=== PATIENT | female | born 1995 | race Caucasian/White ===

== ENCOUNTER → 2022-03-12 13:19 | Outpatient (BNVA) | payer OTHER, SELFPAY | PROVIDERS: PCP Internal Medicine; Visit Provider Physician Assistant Surgical | DX: Z13.89 Encounter for screening for other disorder (principal) ==

== ENCOUNTER → 2022-03-23 08:00 | Outpatient (BNVA) | payer OTHER, SELFPAY | PROVIDERS: PCP Internal Medicine; Visit Provider Surgery | DX: E66.01 Morbid (severe) obesity due to excess calories (principal); Z68.43 Body mass index [BMI] 50.0-59.9, adult | CPT/HCPCS: 99202 ==

== ENCOUNTER 2022-04-06 10:18 | Outpatient (REF) | payer OTHER, SELFPAY ==
--- NOTE | ~2022-04-06 | XR_ITS ---
EXAMINATION: XR CHEST CLINICAL INFORMATION: Morbid/severe obesity due to excess calories. COMPARISON: None. TECHNIQUE: 2 views of the chest were obtained. FINDINGS: No significant abnormality is noted involving the heart, lungs, mediastinum, bony thorax or soft tissues. XR/XR chest 2V IMPRESSION: Unremarkable chest examination.
[2022-04-06 10:51] LABS: MANUAL DIFF FLAG NO
--- NOTE | 2022-04-06 10:53 | ECG_ITS ---
Test Reason : E66.6 MOR OBS Blood Pressure : / mmHG Vent. Rate : 070 BPM Atrial Rate : 070 BPM P-R Int : 134 ms QRS Dur : 092 ms QT Int : 382 ms P-R-T Axes : 024 051 021 degrees QTc Int : 412 ms Normal sinus rhythm with sinus arrhythmia Normal ECG No previous ECGs available Referred By: Luis Marie Electronically Signed By:LUCIAN NO MD
[2022-04-06 11:34] LABS: Basophils Absolute Auto 0.1 X10*3/uL (0.0-0.2); Basophils Percent Auto 0.9 % (0-2); Eosinophils Absolute Auto 0.1 X10*3/uL (0.0-0.4); Eosinophils Percent Auto 1.8 % (0-4); Hematocrit 43.7 % (37.0-47.0); Hemoglobin 15.3 g/dl (12.0-16.0); Imm Gran Abs Auto 0.01 X10*3/uL (0.00-0.03); Imm Gran Pct Auto 0.1 % (0.0-0.4); Lymphocytes Percent Auto 29.5 % (20-40); Mean Corpuscular Volume 88.6 fL (80.0-98.0); Mean Platelet Volume 11.6 fL (9.4-12.3); Monocytes Absolute Auto 0.5 X10*3/uL (0.1-1.2); Neutrophils Percent Auto 60.7 % (45-73); Platelet Count 291 X10*3/uL (160-400); Red Blood Count 4.93 X10*6/uL (4.20-5.50); Red Cell Distribution Width 13.1 % (11.0-16.0); White Blood Count 6.7 X10*3/uL (4.8-10.8)
[2022-04-06 11:41] LABS: Estimated Average Glucose 88 mg/dL; Hemoglobin A1c % 4.7 %
[2022-04-06 11:56] LABS: Alanine Aminotransferase 28 U/L (0-31); Albumin Level 4.3 g/dL (3.5-5.0); Alkaline Phosphatase 83 U/L (39-117); Anion Gap 13 (12-20); Aspartate Amino Transferase 24 U/L (5-31); Bilirubin Total 0.7 mg/dL (0.0-1.0); Blood Urea Nitrogen 16 mg/dL (9-16); C Reactive Protein 0.81 mg/dL (< or = 0.50); Calcium 9.7 mg/dL (8.4-10.2); Carbon Dioxide 23 mmol/L (22-29); Chloride 109 mmol/L (96-108); Cholesterol 166 mg/dL; Estimated Glomerular Filt Rate > 60; Glucose Random 90 mg/dL (60-115); HDL Cholesterol 31 mg/dL; Iron 119 mcg/dL (30-160); LDL Cholesterol Calculated 122 mg/dl; Percent Iron Saturation 35 % (15-50); Potassium 4.9 mmol/L (3.3-5.1); Sodium 140 mmol/L (135-145); Total Iron Binding Capacity 336 mcg/dL (228-428); Total Protein 7.2 g/dL (6.5-8.0); Triglycerides 69 mg/dL; Unsaturated Iron Binding 217 ug/dL
[2022-04-06 12:21] LABS: Ferritin 79 ng/mL (10-122); TSH reflex Free T4 0.35 uIU/mL (0.32-4.0); Vitamin D 25-OH Total 21.9 ng/mL (>30)
[2022-04-06 12:48] LABS: Vitamin B12 413 pg/mL (200-900)
[2022-04-06 12:51] LABS: Insulin 11 uU/mL (2-29)
[2022-04-07 12:42] LABS: Calcium (PTHI) 9.5 mg/dL (8.6-10.2); PTHI 77 pg/mL (16-77)
[2022-04-07 12:56] LABS: H Pylori Breath Test Negative (Negative)
[2022-04-09 00:02] LABS: Zinc 80 mcg/dL (60-130)
[2022-04-09 22:46] LABS: Vitamin A 43 mcg/dL (38-98)
[2022-04-11 12:16] LABS: Vitamin B1 8 nmol/L (8-30)
== END 2022-04-06 10:19 | disposition home or self-care (01) ==
LOC: HO.LAB 10:18
PROVIDERS: PCP Student in an Organized Health Care Education/Training Program; Visit Provider Surgery
DX: Z01.818 Encounter for other preprocedural examination (principal); E66.01 Morbid (severe) obesity due to excess calories
CPT/HCPCS: 36415; 71046; 80053; 80061; 82306; 82607; 82728; 82746; 83013; 83036; 83525; 83540; 83970; 84425; 84443; 84590; 84630; 85025; 86140; 93005; 99211

== ENCOUNTER → 2022-04-16 08:11 | Outpatient (BNVA) | payer OTHER, SELFPAY | PROVIDERS: PCP Internal Medicine; Visit Provider Dietitian, Registered | DX: E66.01 Morbid (severe) obesity due to excess calories (principal); Z68.42 Body mass index [BMI] 45.0-49.9, adult | CPT/HCPCS: 97802 ==

== ENCOUNTER → 2022-04-20 11:00 | Outpatient (BNVA) | payer OTHER, SELFPAY | PROVIDERS: PCP Student in an Organized Health Care Education/Training Program; Visit Provider Counselor Mental Health | DX: F43.20 Adjustment disorder, unspecified (principal); E66.01 Morbid (severe) obesity due to excess calories | CPT/HCPCS: 90791 ==

== ENCOUNTER 2022-05-11 08:55 | Outpatient (REF) | payer OTHER, SELFPAY ==
--- NOTE | ~2022-05-11 | FL_ITS ---
PROCEDURE: XR FLUOROSCOPY UPPER GI WITH AIR CLINICAL INFORMATION: Morbid/severe obesity due to excess calories. COMPARISON: None. TECHNIQUE: Routine upper GI contrast study was performed in upright and lying position. FINDINGS: Following oral administration of thick barium and effervescent granules in upright view there is normal propagation of bolus from the oral cavity through the pharynx, esophagus into stomach. No obstruction or intraluminal filling defect seen. On placing patient supine and prone lying the course, caliber and the peristalsis of the stomach and the duodenum is normal. The mucosal pattern of the stomach and the duodenum is normal. FLUOROSCOPY TIME: 2.3 minutes. DOSE AREA PRODUCT: 37.927 uGy-m2 (microgray-meter squared). FL/FL upper GI w air IMPRESSION: Unremarkable upper GI exam.
--- NOTE | ~2022-05-11 | US_ITS ---
EXAMINATION: US COMPLETE ABDOMEN WITH LIVER ELASTOGRAPHY CLINICAL INFORMATION: Obesity COMPARISON: None. TECHNIQUE: Real-time imaging of the abdominal viscera. Noninvasive ultrasound liver fibrosis assessment is performed using Bird ElastPQ point quantification shear wave elastography (2D-SWE) with a C5-2 MHz transducer. Multiple elastography samples are obtained. FINDINGS: PANCREAS: The visualized pancreatic head and body are normal in appearance. The remainder of the pancreas is obscured from visualization by the overlying bowel gas. ABDOMINAL AORTA: The proximal, middle, and distal aortic segments are normal in caliber. INFERIOR VENA CAVA: Visualized portions are normal. LIVER: Liver echotexture is slightly increased. The liver demonstrates normal size, and contour. No focal lesion or intrahepatic biliary duct dilatation. The right lobe measures 17 cm in length. The left lobe measures 9.3 cm in length. Portal flow is normal/hepatopedal Shear wave liver elastography median stiffness is 1.8 m/s (reference: normal median stiffness is 1.3 m/s or less). IQR/median stiffness to assess sampling precision is 0.22 (reference: good quality data set is IQR/median stiffness of 0.15 or less). GALLBLADDER: Normal. The gallbladder is physiologically distended without evidence of stones, sludge, polyps, wall thickening or pericholecystic fluid. COMMON BILE DUCT: Normal in caliber measuring 0.3 cm in diameter. RIGHT KIDNEY: Normal. No hydronephrosis. No renal calculi or focal parenchymal lesions. The kidney measures 11 cm in maximum dimension. LEFT KIDNEY: Normal. No hydronephrosis. No renal calculi or focal parenchymal lesions. The kidney measures 11.3 cm in maximum dimension. SPLEEN: Normal. The spleen measures 10.2 cm in maximum dimension. FREE FLUID: None. US/US abdomen comp w elastography IMPRESSION: 1. Impression: Slightly echogenic liver. Limited visualization of the tail the pancreas. 2. Liver elastography: Slightly limited due to sampling error. Slightly elevated liver stiffness. REFERENCE: Society of Radiologists in Ultrasound Liver Stiffness Thresholds (2020): LIVER STIFFNESS THRESHOLDS: *Liver Stiffness equal or less than 1.3 m/s: High probability of being normal. *Liver Stiffness less than 1.7 m/s: In the absence of other known clinical signs, rules out compensated advanced chronic liver disease. *Liver Stiffness 1.7-2.1 m/s: Suggestive of compensated advanced chronic liver disease but need further test for confirmation. *Liver Stiffness over 2.1 m/s: Rules in compensated advanced chronic liver disease. *Liver Stiffness over 2.4 m/s: Suggestive of clinically significant portal hypertension. QUALITY OF DATA SET: *IQR/Median value equal or less than 0.15 implies a quality data set. *IQR/Median value over 0.15 implies a poor quality data set. SIGNIFICANT CHANGE FROM PRIOR EXAM: Significant change if liver stiffness measurement is 10% or greater from prior exam. OTHER CONSIDERATIONS: The stage of liver fibrosis may be overestimated in the setting of acute hepatitis, liver inflammation, elevated liver function tests, hepatic vascular congestion, obstructive cholestasis, non-fasting state, and infiltrative diseases such as amyloidosis and lymphoma. In some patients with NAFLD, the liver stiffness thresholds for compensated advanced chronic liver disease may be lower. In causes other than viral hepatitis and NAFLD, liver stiffness thresholds are not well established.
== END 2022-05-11 08:56 | disposition home or self-care (01) ==
LOC: HO.US 08:55
PROVIDERS: PCP Student in an Organized Health Care Education/Training Program; Visit Provider Surgery
DX: E66.01 Morbid (severe) obesity due to excess calories (principal)
CPT/HCPCS: 74246; 76705; 76981

== ENCOUNTER 2022-05-19 07:55 | Inpatient (IN) | payer OTHER, SELFPAY ==
[2022-05-14 10:33] VITALS: BMI 44.6
[2022-05-15 09:35] LABS: MANUAL DIFF FLAG NO
[2022-05-15 10:31] LABS: Basophils Absolute Auto 0.1 X10*3/uL (0.0-0.2); Basophils Percent Auto 0.9 % (0-2); Eosinophils Absolute Auto 0.1 X10*3/uL (0.0-0.4); Eosinophils Percent Auto 1.2 % (0-4); Hematocrit 43.6 % (37.0-47.0); Hemoglobin 15.3 g/dl (12.0-16.0); Imm Gran Abs Auto 0.02 X10*3/uL (0.00-0.03); Imm Gran Pct Auto 0.3 % (0.0-0.4); Lymphocytes Absolute Auto 1.8 X10*3/uL (1.2-4.9); Mean Corpuscular HGB Conc 35.1 g/dl (31.0-35.0); Mean Corpuscular Hemoglobin 31.2 pg (27.0-33.0); Mean Platelet Volume 12.7 fL (9.4-12.3); Monocytes Absolute Auto 0.5 X10*3/uL (0.1-1.2); Monocytes Percent Auto 7.2 % (2-11); Neutrophils Absolute Auto 4.2 x10*3/uL (2.0-8.3); Neutrophils Percent Auto 63.4 % (45-73); Platelet Count 253 X10*3/uL (160-400); Red Cell Distribution Width 13.8 % (11.0-16.0); White Blood Count 6.7 X10*3/uL (4.8-10.8)
[2022-05-15 10:36] LABS: Estimated Average Glucose 80 mg/dL; Hemoglobin A1c % 4.4 %
[2022-05-15 10:38] LABS: INTERNATIONAL NORM RATIO 1.2 (0.9-1.1); Prothrombin Time 14.1 SEC (9.9-13.0)
[2022-05-15 11:05] LABS: Alanine Aminotransferase 28 U/L (0-31); Albumin Level 4.5 g/dL (3.5-5.0); Alkaline Phosphatase 85 U/L (39-117); Anion Gap 17 (12-20); Aspartate Amino Transferase 23 U/L (5-31); Blood Urea Nitrogen 13 mg/dL (9-16); C Reactive Protein 0.92 mg/dL (< or = 0.50); Calcium 9.7 mg/dL (8.4-10.2); Carbon Dioxide 19 mmol/L (22-29); Chloride 108 mmol/L (96-108); Cholesterol 154 mg/dL; Creatinine Clr Calc Pharmacy 123.7; Estimated Glomerular Filt Rate > 60; Glucose Random 76 mg/dL (60-115); HDL Cholesterol 28 mg/dL; LDL Cholesterol Calculated 112 mg/dl; Potassium 4.5 mmol/L (3.3-5.1); Sodium 139 mmol/L (135-145); Total Protein 7.2 g/dL (6.5-8.0); Triglycerides 73 mg/dL
[2022-05-15 11:26] LABS: Insulin 9 uU/mL (2-29); TSH reflex Free T4 0.21 uIU/mL (0.32-4.0)
[2022-05-15 12:00] LABS: Free T4 (Free Thyroxine) 1.08 ng/dL (0.71-1.85)
--- NOTE | 2022-05-16 09:48 | MHC.SHP ---
Pre-Procedural Eval Section A Date of Service: 05/16/22 The patient is an INPATIENT: Yes The History & Physical has been completed within 30 days and I have reviewed it.: Yes Section B Chief Complaint: obesity Relevant Family History (Specify if Yes): No Relevant Social History: None Present Medications: None Medical History: No relevant PMH History of Previous Operations: No relevant previous surgery Allergies: Allergies Allergy/AdvReac Type Severity Reaction Status Date / Time No Known Allergies Allergy Verified 05/15/22 09:56 Review of Systems Sugical H&P ROS: Negative: Constitution, Cardiovascular, Respiratory, Neurological, Psychiatric, Hem-Onc, Allergic/Immunologic, Gastrointestinal, Genitourinary, Musculoskeletal, Integumentary, Endocrine and Eyes/Ears/Nose/Throat Exam Surgical H&P Exam: Normal: HEENT, Normal: Heart, Normal: Lungs, Normal: Extremities, Normal: Abdomen, Normal: Skin and Normal: Neurological Plan Diagnosis/Plan: Unchanged I have reviewed the history and physical and performed a pertinent physical examination on my patient. No changes have occurred unless specified.
--- NOTE | 2022-05-18 10:09 | P.CONAN_ITS ---
Documented by User: Tiffanie Carr NP 05/18/22 10:10 HPI - Anesthesia Eval Consult details Narrative: 26yo F for Gastrectomy Sleeve, EGD,Possible diaphragmatic hernia,Possible ventral hernia,Possible open PMFSH Active Problems Active Problems: All Active Problems (Updated 05/14/22 @ 10:33 by Sydnie Guerra RN) Morbid obesity (Acute) Vitamin D deficiency (Acute) Vitamin B12 deficiency (Acute) Adjustment disorder (Acute) Past Medical History Medical History (Updated 05/19/22 @ 11:14 by Luis Marie MD) History of epidural anesthesia Family History Family History (Updated 03/12/22 @ 13:54 by Karon Tobin) Brother Stomach acid Surgical History Surgical History (Updated 05/19/22 @ 13:26 by Shayla Cormier PA-C) Hx of wisdom tooth extraction Social History Social History (Updated 03/12/22 @ 13:55 by Karon Tobin) Are you a primary career development counselor to a significant other at home: Yes (children) Do you presently have visiting nurse or other home services: No Alcohol intake: current Alcohol intake frequency: does not drink Patient Tobacco Use Status: Never used Tobacco Use of substances other than those prescribed or required for medical reasons: No Have you been hit, kicked, punched, or otherwise hurt by someone within the past year? If so, by whom?: No Are you DNR?: No Advance Directives: No Advance Directives Information Provided: Yes Advance Directives on File: No Recently lost weight without trying: No Patient : No FDLMP: 04/13/2022 : No Poor oral hygiene: No Meds Allergies Allergy/AdvReac Type Severity Reaction Status Date / Time No Known Allergies Allergy Verified 05/15/22 09:56 Home Medications Medication Instructions Recorded Confirmed Last Taken Type etonogestrel 68 mg subdermal subdermal 03/12/22 05/15/22 Unknown History implant (Nexplanon) Exam Exam Date and Time: May 18, 2022 1009 Height,Weight and Vital Signs: Height 5 ft 4 in Weight 117.843 kg Pertinent Lab Results Pertinent Lab Results: Laboratory Tests 05/15/22 05/15/22 05/15/22 09:30 09:33 09:33 WBC 6.7 RBC 4.90 Hgb 15.3 Hct 43.6 MCV 89.0 MCH 31.2 MCHC 35.1 H RDW 13.8 Plt Count 253 MPV 12.7 H Immature Gran % (Auto) 0.3 Neut % (Auto) 63.4 Lymph % (Auto) 27.0 Heard % (Auto) 7.2 Eos % (Auto) 1.2 Baso % (Auto) 0.9 Lymph # (Auto) 1.8 Heard # (Auto) 0.5 Eos # (Auto) 0.1 Baso # (Auto) 0.1 Abs Immat Gran (auto) 0.02 Absolute Neuts (auto) 4.2 Absolute Nucleated RBC 0.000 Nucleated RBC % (auto) 0.0 PT 14.1 H INR 1.2 H APTT 48.0 H Sodium Potassium Chloride Carbon Dioxide Anion Gap BUN Creatinine Estim Creat Clear Calc Estimated GFR Random Glucose Estimat Average Glucose Hemoglobin A1c % Insulin Level Calcium Total Bilirubin AST ALT Alkaline Phosphatase C-Reactive Protein Total Protein Albumin Triglycerides Cholesterol LDL Cholesterol, Calc HDL Cholesterol TSH Free T4 Blood Type O Positive Antibody Screen NEGATIVE 05/15/22 05/15/22 09:33 09:33 WBC RBC Hgb Hct MCV MCH MCHC RDW Plt Count MPV Immature Gran % (Auto) Neut % (Auto) Lymph % (Auto) Heard % (Auto) Eos % (Auto) Baso % (Auto) Lymph # (Auto) Heard # (Auto) Eos # (Auto) Baso # (Auto) Abs Immat Gran (auto) Absolute Neuts (auto) Absolute Nucleated RBC Nucleated RBC % (auto) PT INR APTT Sodium 139 Potassium 4.5 Chloride 108 Carbon Dioxide 19 L Anion Gap 17 BUN 13 Creatinine 0.87 Estim Creat Clear Calc 123.7 Estimated GFR > 60 Random Glucose 76 Estimat Average Glucose 80 Hemoglobin A1c % 4.4 Insulin Level 9 Calcium 9.7 Total Bilirubin 1.0 AST 23 ALT 28 Alkaline Phosphatase 85 C-Reactive Protein 0.92 H Total Protein 7.2 Albumin 4.5 Triglycerides 73 Cholesterol 154 LDL Cholesterol, Calc 112 HDL Cholesterol 28 TSH 0.21 L Free T4 1.08 Blood Type Antibody Screen Narrative Narrative: EKG 03/2022 Vent. Rate : 070 BPM ? ? Atrial Rate : 070 BPM ?? P-R Int : 134 ms? QRS Dur : 092 ms ? ? QT Int : 382 ms ? ? ? P-R-T Axes : 024 051 021 degrees ?? QTc Int : 412 ms ? Normal sinus rhythm with sinus arrhythmia Normal ECG No previous ECGs available Assessment and Plan Assessment Anesthesia Assessment: Chart Reviewed Documented by User: Óscar Deleon MD 05/19/22 14:12 [facility] Past Medical History Medical History (Updated 05/19/22 @ 11:14 by Luis Marie MD) History of epidural anesthesia Family History Family History (Updated 03/12/22 @ 13:54 by Karon Tobin) Brother Stomach acid Family history of problems with anesthesia: No Surgical History Surgical History (Updated 05/19/22 @ 13:26 by Shayla Cormier PA-C) Hx of wisdom tooth extraction History of Problems with Anesthesia: No Social History Social History (Updated 03/12/22 @ 13:55 by Karon Tobin) Are you a primary career development counselor to a significant other at home: Yes (children) Do you presently have visiting nurse or other home services: No Alcohol intake: current Alcohol intake frequency: does not drink Patient Tobacco Use Status: Never used Tobacco Use of substances other than those prescribed or required for medical reasons: No Have you been hit, kicked, punched, or otherwise hurt by someone within the past year? If so, by whom?: No Are you DNR?: No Advance Directives: No Advance Directives Information Provided: Yes Advance Directives on File: No Recently lost weight without trying: No Patient : No FDLMP: 04/13/2022 : No Poor oral hygiene: No Meds Allergies Allergy/AdvReac Type Severity Reaction Status Date / Time No Known Allergies Allergy Verified 05/15/22 09:56 Home Medications Medication Instructions Recorded Confirmed Last Taken Type etonogestrel 68 mg subdermal subdermal 03/12/22 05/15/22 Unknown History implant (Nexplanon) Exam Airway Mallampati Class: III TM Dist: >3cm Neck ROM: Full Loose/Missing/Broken Teeth: Yes Heart: S!,S2 Lungs: b/l breath sounds Assessment and Plan Assessment Anesthesia Assessment: Anesthesia Plan Discussed Final Anesthetic Review Family History of Problems with Anesthesia: No History of Problems with Anesthesia: No NPO: Yes ASA Class: III Final Preanesthetic Review: Meds/Allgs Chart Reviewed, Consent Obtained/Reviewed and Anes Risks/Benef Reviewed Patient Risk: Intermediate Procedure Risk: Intermediate Anesthetic Plan Anesthetic Plan: GA Disposition: Standard PACU
[2022-05-18 10:12] LABS: COVID-19 Test Negative (Negative); IDNOW Serial# 16C4AD1C
[2022-05-19] VITALS (13 sets, daily range): BP systolic 108–135; BP diastolic 55–82; PULSE 87–110; RESP 16–18; TEMP 36.1–37.3; O2SAT 95–100
[2022-05-19 08:30] LABS: UPreg QC Valid YES
[2022-05-19 08:31] LABS: Urine Pregnancy NEGATIVE (NEGATIVE)
[2022-05-19] MEDS: Lactated Ringers 1,000 ML 100 ML IVCONT ×2 (08:45→16:54)
[2022-05-19] MEDS: Lactated Ringers 1,000 ML 999 ML IV (08:46)
--- NOTE | 2022-05-19 09:52 | PHA.MEDREC ---
Pharmacy Consult ? Medication Reconciliation Pharmacy has reviewed the medication reconciliation completed by nursing.
--- NOTE | 2022-05-19 11:13 | PM.PNGS ---
Subjective Subjective Date of Service: 05/20/22 Interval history: Feels well. Mild incisional pain. She is tolerating phase 1 bariatric diet Physical Exam Vital Signs: Vital Signs: Last Vital Signs Temp 97.5 F 05/19/22 08:24 Pulse 102 H 05/19/22 08:24 Resp 17 05/19/22 08:24 BP 135/82 05/19/22 08:24 Pulse Ox 98 05/19/22 08:24 O2 Del Method 05/19/22 08:24 BMI result Body Mass Index 44.6 GI: Inspection: Yes normal to inspection, Yes incision (clean, dry and intact) and Yes obesity Extrem: Right lower extremity: normal to inspection (no calf tenderness) Left lower extremity: normal to inspection (no calf tenderness) Objective Data Active Medications Lactated Ringer's (Lr) 1,000 mls @ 100 mls/hr IVCONT .Q10H [place] Last Admin: 05/19/22 08:45 Dose: 100 mls/hr Documented By: GONSALO Labs CBC & Chem 7: 05/20/22 05:40 05/20/22 05:40 Labs: Laboratory Results - last 24 hr 05/19/22 08:15 Urine Test NEGATIVE Procedures Date of Service Date of Service: 05/20/22 Progress Note: A&P Assessment and plan (1) Morbid obesity: Status: Acute Assessment and Plan: s/p laparoscopic sleeve gastrectomy and gastropexy Doing well Will check am labs and if OK the patient will be discharged home (2) Liver fibrosis: Status: Acute (3) S/P laparoscopic sleeve gastrectomy: Status: Acute Time Spent With Patient Time: Total time spent is greater than 50% in coordination of care (as documented) at patient's floor/unit and/or counseling patient: Quality Stroke Does the patient have a stroke diagnosis?: No VTE Prior VTE?: No VTE Risk Level:: Surgical - moderate VTE Device Contraindication: N/A - Device Ordered VTE Drug Contraindication: Treatment Not Indicated
--- NOTE | 2022-05-19 11:15 | PM.OP ---
Brief Operative Note Date of Service: 05/19/22 Pre-op diagnosis: Morbid obesity with comorbidities (see below0 Post-op diagnosis: same Procedure: INITIAL PATIENT BMI ON PRESENTATION AT OUR OFFICE: 50.1 kg/m2 LAST BMI BEFORE SURGERY: 44.1 kg/m2 COMORBIDITIES: liver fibrosis ?The patient presented to the Weight Management Program with significant obesity that was negatively impacting the patient's comorbidities as listed above.? The program is a phased program with a special focus on preoperative medical weight management to promote substantial weight loss and prepare the patients for the second phase of the program: bariatric surgery. The patient participated in an intensive weekly lifestyle ?intervention and exercise program during which the patient ?has lost between the initial office visit and the last preoperative visit 35 lbs, or 12% of initial actual body weight. It was deemed appropriate for the patient to now have bariatric surgery. In light of the current Covid-19 pandemic and the well documented strong association of obesity and increased risk of worse outcomes if infected with Covid-19 (REFERENCES:https://pubmed.ncbi.nlm.nih.gov/95930717/,?https://pubmed.ncbi.nlm.nih.gov/64512745/), any delay in undergoing bariatric surgery may lead to the patient's worsening health condition and increased?risk of more severe Covid-19 disease if infected. In addition a recent?study from [facility] published in [employer] on 11/24/2021 ([email or web address]) found that, among patients with obesity, substantial weight loss achieved with surgery was associated with improved outcomes of COVID-19 infection. The findings suggest that obesity can be a modifiable risk factor for the severity of COVID-19 infection. In addition, the patient met the BMI-criteria for bariatric surgery based on the BMI on initial presentation. The patient should not be penalized for achieving such weight loss because ?it is not sustainable long-term without surgical intervention and it was achieved in preparation for bariatric surgery ?under my direction and based on my published research ([email or web address]).[email or web address] and?https://www.soard.org/article/[email or web address](78)80693-X/pdf) ?that a 10% preoperative weight loss improves long-term weight loss after surgery and reduces perioperative complications.? Insurance carriers such as [facility] have endorsed my recommendations ?and have included in their policies criteria to include a 10% preoperative weight loss requirement. PROCEDURE: Esophago-gastroscopy, laparoscopic repair of incarcerated diaphragmatic hernia, laparoscopic lysis of adhesions, laparoscopic sleeve gastrectomy and laparoscopic gastropexy INDICATIONS: This is a 26 year-old female who was electively scheduled for laparoscopic, possibly open sleeve gastrectomy. The risks and complications of the procedure were discussed with the patient in advance, particularly the possibility of ; pulmonary embolism; staple line leak; bleeding; GERD; cardiac, pulmonary, or renal complications; as well as long-term problems such as insufficient weight loss, vitamin deficiency, strictures, or ulcers. The patient understood all the risks, and was in agreement to proceed with surgery. DESCRIPTION OF PROCEDURE: After informed consent was obtained from the patient, the patient was given preoperative antibiotics, and was transferred to the operating room. After successful induction of general anesthesia, pneumatic compression devices were placed on both lower extremities. An upper endoscopy was performed next. The oropharynx and esophagus appeared to be within normal limits. There was no diaphragmatic hernia present consistent with the findings of the preoperative upper GI. The stomach was entered. Then after all fluid and air were suctioned and the stomach was fully decompressed, the scope was withdrawn and secured in the mid esophagus. The patient was then prepped and draped in the usual sterile manner, and abdominal access was established at the right upper quadrant with the Ata technique. A 12 mm blunt port was inserted, and the abdomen was insufflated with CO2 to a pressure of 15 mmHg. Under direct visualization, additional ports were placed, specifically two 5 mm Versi-step ports to the left upper quadrant, and a 5 mm Versi-Step port to the right upper quadrant. 1% lidocaine plain was used to infiltrate all port sites as well as all fascia defects. Using the EndoClose suture passer device, I placed a #1 Polysorb tie across the falciform ligament in order to retract it up against the abdominal wall and prevent injury of the ligament with our instruments during the procedure. Following that, the patient was placed in a steep reverse Trendelenburg position. An additional 5 mm port was placed to the right flank for the Mediflex retractor that was used to retract the left lobe of the liver. The gastro-esophageal fat pad was opened with the ultrasonic device (Thunderbeat, Olympus) and the anterior esophagus and hiatus were exposed. The angle of His was opened with the ultrasonic device the fundus of the stomach from any diaphragmatic and splenic attachments. I then opened the gastrocolic ligament between the transverse colon and the greater curvature of the stomach with the ultrasonic device to enter the lesser sac and facilitate the ligation of the short gastric vessels. I started at a mid-point along the greater curvature and using the Thunderbeat, all short gastric vessels were divided all the way to the angle of His until the left sushant was completely dissected at its entirety. I then divided the gastro-colic ligament distally to a distance of about 3-4 cm proximal to the pylorus. The stomach was then divided transversely with one Endo ROYA-45 purple, one ROYA-45 orange load and three ROYA-60 articulating orange loads using the AEON stapler and loads. Every effort was made that the gastric sleeve had a tubular shape and an even caliber throughout. Once the sleeve resection was completed, the staple line of the gastric sleeve was reinforced with Hemoclips. The resected stomach was retrieved without difficulty from the Ata port. A gastropexy was then performed in order to prevent postoperative GERD and partial gastric volvulus. Several interrupted 2.0 Surgidac sutures were placed between the sleeve's staple line and the previously divided greater omentum and gastro-colic ligament using the Endo-Stitch device. ?An upper endoscopy was performed. There was no narrowing at the GE junction. The scope was easily advanced all the way to the pylorus which was clearly visualized. There was no narrowing anywhere and the sleeve's caliber was even throughout. The sleeve's staple line was inspected and there was no evidence of ischemia, bleeding or dehiscence. At that point the gastroscope was withdrawn from the patient?s mouth while we were decompressing the bowel and the stomach from any remaining air. I looked into the lesser sac to see how the sleeve was situating and it was situating well. There was no bleeding from the staple line, spleen, or short gastric vessels. The Mediflex retractor was removed, and the undersurface of the liver was inspected and there was no bleeding. The patient was placed in supine position. I closed the fascial defect of the 12 mm port site with a figure of eight #1 Polysorb suture. Then 40cc of Rupivacaine plain with 10 mg of Dexamethasone were used to infiltrate the fascial closure as well as all skin incisions. A total of 7 ml of Zynrelef was applied in the Ata wound. At this point, the abdomen was deflated, all ports were removed under direct vision, and no bleeding was noted from any of the port sites. The skin incisions were irrigated with saline and were closed with 4-0 absorbable monofilament sutures. Steri-Strips and OpSites were used to cover all incisions. The patient was extubated and was transferred in stable condition to the recovery room for further care. I was present and performed all harman parts of the procedure. Ms. Cormier was the instruction assistant principal. There were no residents to assist with this case. Marcos Marie MD, PhD, FACS Surgeon: Luis Marie MD Anesthesia: GETA, local and other (TAP block & 7ml Zynrelef) Was an Supervisor Vacuum Metalizing used for this Procedure?: No Supervisor Vacuum Metalizing: Shayla Cormier Estimated blood loss (mL): 10 IV fluids (mL): 3,000 Urine output (mL): 0 (No Cameron to record) Pathology: other (Stomach) Condition: stable Disposition: PACU
--- NOTE | 2022-05-19 13:24 | PM.DS ---
DS: Providers Provider Date of Service: 05/20/22 Date of admission: 05/19/22 07:55 Primary care physician: Ángel Moss DO DS: Diagnosis Discharge Diagnosis (1) Morbid obesity: Status: Acute (2) Liver fibrosis: Status: Acute DS: Summary Hospital Course Hospital Course: ADMITTING DIAGNOSIS: morbid obesity DISCHARGE DIAGNOSIS: same, s/p laparoscopic sleeve gastrectomy PAST SURGICAL HISTORY: wisdom teeth removal PROCEDURE: upper endoscopy, laparoscopic sleeve gastrectomy DISCHARGE SUMMARY: History of Present Illness: The patient is a 26 year-old woman with a BMI of 50.1 kg/m2 and associated co-morbidities as described above. The patient had extensive work-up,lost 27.6lbs preoperatively and was electively scheduled for laparoscopic, possible open sleeve gastrectomy and gastropexy. Risks and complications of the surgery were discussed with the patient in advance, particularly the possibility of , pulmonary embolism, anastomotic leak, bleeding, bowel injury, GERD, cardiac, renal or pulmonary complications. The patient understood all the risks and was in agreement with the surgical plan. Hospital Course: The patient underwent an uneventful laparoscopic sleeve gastrectomy with gastropexy on the day of admission. Postoperatively, the patient was transferred to the surgical floor. The patient received IV Acetaminophen and IV dilaudid for pain control. Patient was started on bariatric phase 1 diet POD #0. On postoperative day one, the patient was feeling well without nausea, vomiting, fevers, or tachycardia. The patient had some mild incisional pain and the abdomen was soft. On the morning of postoperative day one, the patient was continued on 1 ounce of water or ice every half hour. During the day, the patient did fairly well, having some incisional pain, but able to ambulate adequately and to tolerate liquids well. Since the patient is doing well, we decided that the patient was ready to be discharged. The patient was given instructions to follow-up with me next week and to call my office for any fever over 101, persistent abdominal pain, nausea, vomiting, GERD, symptoms of DVT such as calf tenderness, or leg swelling, or pulmonary embolism such as chest pain or shortness of breath. The patient was also instructed to drink 40-60 ounces of liquids per day using the 1-ounce cups. The patient had been given prescriptions for Tylenol for pain, Zofran prn for nausea, and pantoprazole and carafate previously. The patient was encouraged to ambulate and use the incentive spirometer. The patient was allowed to shower, but no baths, and encouraged to stay active at home. All of these instructions were given to the patient personally. All questions were answered and the patient understood all instructions, the instructions were also given to the patient in print. Time Spent with Patient Time attestation: Total time spent providing and/or coordinating discharge services: Discharge coordination time: Less than 30 minutes Quality: Safe Use of Opioids Does Pt have an Active Cancer Diagnosis on the Problem List?: No Quality: Stroke Does the patient have a stroke diagnosis?: No Physical Exam Vital Signs: Vital Signs: Last Vital Signs Temp 97.5 F 05/19/22 08:24 Pulse 102 H 05/19/22 08:24 Resp 17 05/19/22 08:24 BP 135/82 05/19/22 08:24 Pulse Ox 98 05/19/22 08:24 O2 Del Method 05/19/22 08:24 BMI result Body Mass Index 44.6 DS: Data Data Completed and Pending Pending studies at discharge: Pending at discharge 05/19/22 13:12 Surgical [PTH] Routine Labs on day of discharge: Laboratory Results - last 24 hr 05/19/22 08:15 Urine Test NEGATIVE Discharge Plan Discharge Anticipated Discharge Date/Time: 05/20/22 10:00 Patient Disposition: Home, Self-Care Discharge Diagnosis: s/p sleeve gastrectomy Referrals: Ángel Moss DO [Primary Care Provider] - 1 Week Discharge Medications: Continued Nexplanon 68 mg implant subdermal pantoprazole 40 mg tablet,delayed release (DR/EC) 40 mg PO DAILY Qty: 30 2RF sucralfate 100 mg/mL suspension 10 ml PO BID Qty: 400 2RF ondansetron HCl 4 mg tablet 4 mg PO Q12H Qty: 20 0RF Discontinued cholecalciferol (vitamin D3) 125 mcg (5,000 unit) capsule 125 mcg PO DAILY Qty: 30 2RF mecobalamin (vitamin B12) 1,000 mcg tablet,disintegrating 1,000 mcg sublingual DAILY Qty: 30 2RF Rx Instructions: place tablet under tongue and allow to dissolve for at least30 secs before swallowing polyethylene glycol 3350 [Miralax] 17 gram powder in packet 17 g PO DAILY Qty: 14 0RF Rx Instructions: Mix each packet with 8oz of water and do 7 packets two days prior to surgery date and another 7 packets one day prior to surgery date Discharge Orders: Discharge Order (Routine); Ordered 05/20/22 Ordered By: Luis Marie Diet: other Activity on Discharge: No heavy lifting Stand Alone Forms: Patient Portal Discharge page Care Plan Goals: weight loss Health Concerns: morbid obesity Plan of Treatment: No tub baths, sex or returning to work until discussed at first post op appointment. No exercise, alcohol, tobacco or illegal drug use. Continue to use incentive spirometer hourly while awake. Walk in home for 5- 10 minutes every 2 hours during the first week. Continue phase 1 diet today and start phase 2 diet tomorrow morning. Follow all instructions in the bariatric handbook and call with any questions. 1. Please call your doctor or come back to the emergency room should any new symptoms arise. 2. You will receive a courtesy call from [facility] 24-48 hours after discharge. 3. Activity: abstain from alcohol, practice limited stair climbing, no bending, no driving, no exercise, no illicit substances, no lifting, no sex, no tub bath, no work. 4. Diet: continue as discussed with Dr. Marie. 5. Dressing Change/Wound Care: Do not change or remove surgical dressings unless they are wet or soiled. 6. Call your doctor if: - Your temperature exceeds 101.5 F - You experience excessive pain or swelling - You have an unexpected reaction to medication - You have excessive bleeding - You experience continued vomiting/nausea - Your incision begins to separate - Your incision shows signs of infection such as increased redness, swelling, excessive pain, heat, or drainage (light blood or clear fluid is normal) 7. General instructions: No lifting greater than 5 lbs for the next 4 weeks[address] driving within 24 hours of taking narcotic pain medications. If you do not move your bowels in the next 2 days, please take milk of magnesia over the counter. Please follow the post op diet and do not advance your diet until you are seen in the office in about 2 weeks. Please walk around your home every hour or two to prevent blood clots from forming in your legs. You do not need to wake from sleeping to walk. Please sleep in a bed or couch to prevent kinking at the hips and knees. Please take your incentive spirometer (your lung document photographer) home with you and use it for the next few days to prevent pneumonias. You may shower, no hot tubs, baths or swimming pools. Please call the office with any questions or concerns such as increasing abdominal pain, fever, chills, shortness of breath, chest pain, leg pain or swelling, or redness or drainage from your incisions. Do not hesitate to contact the office with any questions at . The patient's medical history has been reviewed and they are considered low risk for post op DVT and therefore DVT prophylaxis is not considered necessary. Travel after surgery was reviewed. The patient has not disclosed any travel plans during the first 30 days after surgery and they have been advised that within the first 30 days after surgery any bus, plane, train or car travel over 2 hours in duration is contraindicated due to the possibility of developing blood clots from immobility. Any travel, needs to include periods of ambulation of 10 minutes in duration every 2 hours. The patient was instructed to discuss any plans for travel during this period with their bariatric surgeon. Assessment: stable, post op sleeve gastrectomy
[2022-05-19 13:48] LABS: Hematocrit 39.3 % (37.0-47.0); Hemoglobin 13.5 g/dl (12.0-16.0)
[2022-05-19] MEDS: Metoclopramide HCl 10 MG/2 ML VIAL IVPUSH ×2 (13:54→21:19)
[2022-05-19] MEDS: Famotidine/PF 20 MG/2 ML VIAL IVPUSH ×2 (13:55→21:19)
[2022-05-19 14:10] LABS: Anion Gap 18 (12-20); Blood Urea Nitrogen 10 mg/dL (9-16); Calcium 8.7 mg/dL (8.4-10.2); Carbon Dioxide 16 mmol/L (22-29); Chloride 106 mmol/L (96-108); Creatinine Clr Calc Pharmacy 131.2; Estimated Glomerular Filt Rate > 60; Glucose Random 127 mg/dL (60-115); Potassium 3.4 mmol/L (3.3-5.1); Sodium 137 mmol/L (135-145)
[2022-05-19] MEDS: ondansetron HCL 4 MG/2 ML VIAL IVPUSH (16:53)
[2022-05-19] MEDS: 0.9 % Sodium Chloride Flush 3 ML SYRINGE IVFLUSH ×2 (16:54→21:19)
[2022-05-19] MEDS: ceFAZolin Sodium/Dextrose,Iso 2 GM/50 ML PIGGYBACK IV (16:54)
[2022-05-19] MEDS: HYDROmorphone HCl 0.5 MG/0.5 ML SYRINGE 0.25 MG IVPUSH (21:19)
[2022-05-19] MEDS: Potassium Phosphate/NS 15 MMOL/250 ML PLAST..BAG 62.5 MMOL IV (23:29)
[2022-05-20] VITALS: RESP 18
[2022-05-20] MEDS: ondansetron HCL 4 MG/2 ML VIAL IVPUSH ×2 (00:11→07:07)
[2022-05-20] MEDS: Lactated Ringers 1,000 ML 100 ML IVCONT ×2 (00:12→05:10)
[2022-05-20 04:00] VITALS: BP 108/61; PULSE 76; RESP 17; TEMP 36.7; O2SAT 95
[2022-05-20 06:43] LABS: Hematocrit 40.4 % (37.0-47.0); Hemoglobin 13.9 g/dl (12.0-16.0); Imm Gran Abs Auto 0.04 X10*3/uL (0.00-0.03); Imm Gran Pct Auto 0.4 % (0.0-0.4); Lymphocytes Absolute Auto 0.7 X10*3/uL (1.2-4.9); Lymphocytes Percent Auto 6.1 % (20-40); MANUAL DIFF FLAG SCAN; Mean Corpuscular HGB Conc 34.4 g/dl (31.0-35.0); Mean Corpuscular Hemoglobin 30.6 pg (27.0-33.0); Mean Platelet Volume 12.8 fL (9.4-12.3); Monocytes Absolute Auto 0.3 X10*3/uL (0.1-1.2); Monocytes Percent Auto 2.9 % (2-11); Neutrophils Percent Auto 90.6 % (45-73); Platelet Count 243 X10*3/uL (160-400); Red Blood Count 4.54 X10*6/uL (4.20-5.50); Red Cell Distribution Width 13.7 % (11.0-16.0); SCAN SMEAR FLAG 1
[2022-05-20] MEDS: Famotidine/PF 20 MG/2 ML VIAL IVPUSH (07:07)
[2022-05-20 07:15] LABS: Anion Gap 17 (12-20); Blood Urea Nitrogen 5 mg/dL (9-16); Calcium 9.2 mg/dL (8.4-10.2); Carbon Dioxide 13 mmol/L (22-29); Chloride 109 mmol/L (96-108); Creatinine Clr Calc Pharmacy 126.6; Estimated Glomerular Filt Rate > 60; Glucose Random 121 mg/dL (60-115); Potassium 4.7 mmol/L (3.3-5.1); Sodium 134 mmol/L (135-145)
[2022-05-20 07:18] LABS: SLIDE REVIEW VERIFIED
[2022-05-20 08:00] VITALS: BP 112/69; PULSE 78; RESP 18; TEMP 36.6; O2SAT 98
--- NOTE | 2022-05-20 09:19 | MHC.CM.PN ---
PT REPORTS: SHE LIVES WITH SPOUSE AND CHILDREN. PT DOES NOT RECEIVE ASSISTANCE AT HOME AND DOES NOT USE DME. PT'S PCP ON FILE- Faustino MARTINEZ FROM [facility]. PT IS COVID VACCINATED X3, MODERNA + BOOSTER. NO HCP ON FILE. PT EDUCATED ABOUT HCP. PT WILL SPEAK WITH HER PCP AND COMPLETE HCP IN OUTPATIENT SETTING. ONCE PT DISCHARGED, HER SPOUSE WILL PROVIDE TRANSPORTATION HOME. DISCHARGE PLAN: PT TO BE DISCHARGED HOME WITHOUT SERVICES.
--- NOTE | 2022-05-20 10:11 | HO.POSTANES ---
Post Anesthesia Evaluation Post Anesthesia Evaluation Vital Signs: Vital Signs Temp Pulse Resp BP Pulse Ox O2 Del Method 05/20/22 08:00 97.8 F 78 18 112/69 98 Room Air 05/20/22 04:00 98.1 F 76 17 108/61 95 Room Air 05/20/22 00:00 18 05/19/22 23:13 97.6 F 87 17 111/60 95 Room Air Anesthesia: General Endotracheal-GETA Mental Status: Awake Pain Control: Satisfactory Nausea/Vomiting: None Hydration: Adequate Anesthesia-Related Issues: No Anes. Related Issues
== END 2022-05-20 09:25 | disposition home or self-care (01) | DRG 403 ==
LOC: HO.EDOVER 09:38 → HO.SSSA 09:41 → HO.S3 14:28
PROVIDERS: Nurse Practitioner; Physician Assistant; Physician Assistant Surgical; Admitting Provider Surgery; PCP Student in an Organized Health Care Education/Training Program; Visit Provider Surgery
PROC: 0DB64Z3 Excision of Stomach, Percutaneous Endoscopic Approach, Vertical (ICD-10-PCS; CPT 43845; principal; 2022-05-19 10:10)
DX: E66.01 Morbid (severe) obesity due to excess calories (principal); K74.00 Hepatic fibrosis, unspecified; Z68.41 Body mass index [BMI] 40.0-44.9, adult; Z20.822 Contact with and (suspected) exposure to COVID-19; Z79.899 Other long term (current) drug therapy
CPT/HCPCS: 36415; 80048; 80053; 80061; 81025; 83036; 83525; 84439; 84443; 85014; 85018; 85025; 85610; 85730; 86140; 86850; 86900; 86901; 87635; 88307; 88342; A4649; J0131; J0690; J1100; J1170; J2250; J2405; J2550; J2765; J2795; J3010

== ENCOUNTER → 2022-06-11 11:00 | Outpatient (BNVA) | payer OTHER, SELFPAY | PROVIDERS: Visit Provider Counselor Mental Health | DX: Z98.84 Bariatric surgery status (principal) | CPT/HCPCS: 90882 ==

== ENCOUNTER 2022-12-09 11:45 | Outpatient (REF) | payer OTHER, SELFPAY ==
[2022-12-09 12:05] LABS: MANUAL DIFF FLAG NO
[2022-12-09 12:12] LABS: Basophils Percent Auto 0.6 % (0-2); Eosinophils Absolute Auto 0.1 X10*3/uL (0.0-0.4); Eosinophils Percent Auto 0.7 % (0-4); Hematocrit 38.2 % (37.0-47.0); Hemoglobin 13.2 g/dl (12.0-16.0); Imm Gran Abs Auto 0.02 X10*3/uL (0.00-0.03); Imm Gran Pct Auto 0.3 % (0.0-0.4); Lymphocytes Absolute Auto 2.4 X10*3/uL (1.2-4.9); Lymphocytes Percent Auto 35.3 % (20-40); Mean Corpuscular HGB Conc 34.6 g/dl (31.0-35.0); Mean Corpuscular Hemoglobin 32.8 pg (27.0-33.0); Mean Platelet Volume 11.3 fL (9.4-12.3); Monocytes Absolute Auto 0.4 X10*3/uL (0.1-1.2); Neutrophils Absolute Auto 3.8 x10*3/uL (2.0-8.3); Neutrophils Percent Auto 57.1 % (45-73); Platelet Count 253 X10*3/uL (160-400); Red Blood Count 4.02 X10*6/uL (4.20-5.50); Red Cell Distribution Width 12.9 % (11.0-16.0); White Blood Count 6.7 X10*3/uL (4.8-10.8)
[2022-12-09 13:24] LABS: Alanine Aminotransferase 12 U/L (0-31); Albumin Level 4.3 g/dL (3.5-5.0); Alkaline Phosphatase 80 U/L (39-117); Anion Gap 11 (12-20); Aspartate Amino Transferase 17 U/L (5-31); Blood Urea Nitrogen 19 mg/dL (9-16); Calcium 9.7 mg/dL (8.4-10.2); Carbon Dioxide 26 mmol/L (22-29); Chloride 108 mmol/L (96-108); Cholesterol 175 mg/dL; Estimated Glomerular Filt Rate > 60; Glucose Random 75 mg/dL (60-115); HDL Cholesterol 38 mg/dL; Iron 147 mcg/dL (30-160); LDL Cholesterol Calculated 128 mg/dl; Percent Iron Saturation 56 % (15-50); Potassium 4.2 mmol/L (3.3-5.1); Sodium 141 mmol/L (135-145); Total Iron Binding Capacity 261 mcg/dL (228-428); Total Protein 6.8 g/dL (6.5-8.0); Triglycerides 47 mg/dL; Unsaturated Iron Binding 114 ug/dL
[2022-12-09 13:31] LABS: Ferritin 120 ng/mL (10-122); Insulin 3 uU/mL (2-29); TSH reflex Free T4 0.75 uIU/mL (0.32-4.0); Vitamin D 25-OH Total 35.7 ng/mL (>30)
[2022-12-09 13:40] LABS: Vitamin B12 269 pg/mL (200-900)
[2022-12-09 13:57] LABS: Estimated Average Glucose 80 mg/dL; Hemoglobin A1c % 4.4 %
[2022-12-10 13:44] LABS: Calcium (PTHI) 9.8 mg/dL (8.6-10.2); PTHI 75 pg/mL (16-77)
[2022-12-13 20:39] LABS: Zinc 77 mcg/dL (60-130)
[2022-12-14 07:23] LABS: Vitamin B1 7 nmol/L (8-30)
[2022-12-15 14:34] LABS: Vitamin A 42 mcg/dL (38-98)
== END 2022-12-09 11:46 | disposition home or self-care (01) ==
LOC: HO.LAB 11:45
PROVIDERS: PCP Student in an Organized Health Care Education/Training Program; Visit Provider Physician Assistant Surgical
DX: Z98.84 Bariatric surgery status (principal)
CPT/HCPCS: 36415; 80053; 80061; 82306; 82607; 82728; 82746; 83036; 83525; 83540; 83970; 84425; 84443; 84590; 84630; 85025; 86140

== ENCOUNTER → 2022-12-11 10:42 | Outpatient (BNVA) | payer OTHER, SELFPAY | PROVIDERS: PCP Student in an Organized Health Care Education/Training Program; Visit Provider Physician Assistant Surgical | DX: E66.3 Overweight (principal); L98.7 Excessive and redundant skin and subcutaneous tissue; Z68.27 Body mass index [BMI] 27.0-27.9, adult; Z98.84 Bariatric surgery status | CPT/HCPCS: 99212 ==

== ENCOUNTER → 2023-02-09 12:49 | Outpatient (BNVA) | payer OTHER, SELFPAY | PROVIDERS: PCP Student in an Organized Health Care Education/Training Program; Visit Provider Physician Assistant Surgical | DX: L98.7 Excessive and redundant skin and subcutaneous tissue (principal); E66.3 Overweight; Z68.26 Body mass index [BMI] 26.0-26.9, adult; Z98.84 Bariatric surgery status | CPT/HCPCS: 99212 ==

== ENCOUNTER → 2023-05-20 13:13 | Outpatient (BNVA) | payer OTHER, SELFPAY | PROVIDERS: PCP Student in an Organized Health Care Education/Training Program; Visit Provider Physician Assistant Surgical | DX: E66.3 Overweight (principal); L98.7 Excessive and redundant skin and subcutaneous tissue; Z68.27 Body mass index [BMI] 27.0-27.9, adult | CPT/HCPCS: 99212 ==

== ENCOUNTER 2023-06-28 14:57 | Outpatient (AMB) | payer OTHER, SELFPAY ==
--- NOTE | 2023-06-28 14:23 | A.OFFVIS_ITS ---
Intake Intake Visit Reasons: VIDEO Pre Op Brachioplasty 07/13/23 Allergies No Known Allergies Allergy (Verified 05/20/23 13:22) HPI HPI Comments History of Present Illness Details This is a pre op appointment for scheduled bilateral brachioplasty with Dr Marie on 07/13/23 meal plan: 2 Celebrate 4:1 shakes with 2 scoops each Protein bar ([employer] perfect or quest) Meal 5-6 forks protein and 6-7 forks veg exercise plan: gym 4 days per week-weights, abs, cardio (treadmill/elliptical/stairmaster/rowing machine. awakens at: 730 am, bed at : 930 pm [facility] Medical History (Updated 06/28/23 @ 14:53 by RYAN Higgins) Adjustment disorder History of epidural anesthesia Morbid obesity Vitamin B12 deficiency Vitamin D deficiency Surgical History Hx of wisdom tooth extraction Family History Brother Stomach acid Social History Are you a primary customer care consultant to a significant other at home: Yes (children) Do you presently have visiting nurse or other home services: No Alcohol intake: current Alcohol intake frequency: does not drink Patient Tobacco Use Status: Never used Tobacco service: No Current occupational status: employed Review of Systems Const All systems reviewed & are unremarkable except as noted in HPI and below Assessment & Plan Assessment & Plan (1) Excess skin: Code(s): L98.7 - Excessive and redundant skin and subcutaneous tissue Plan: 1. Plan for bilateral brachioplasty 2. Continue all vitamins 3. Avoid aspirin, Motrin, aleve, Naproxyn, Advil, etc 4. Please pick up truck driver the two prescriptions I sent to your pharmacy. One is an antibiotic and the other is a stool softener and they are both for after surgery. Not now 5. Please do the preoperative blood work any day between Wednesday06/28/23 and Wednesday07/02/23 6. Continue same nutritional plan with your Celebrate 4:1 shake, protein bar and a dinner. This nutritional plan will give you the best nutritional support to heal your incisions after your surgery. 7. Risks and complications were discussed the possibility of bleeding that may require transfusion, loss of the umbilicus, wound dehiscence or infection, asymmetry. (2) Pre-op evaluation: Code(s): Z01.818 - Encounter for other preprocedural examination Orders: Orders Type and Screen Today L98.7 - Excessive and redundant skin and subcutaneous tissue, Z01.818 - Encounter for other preprocedural examination Vitamin B12 Today L98.7 - Excessive and redundant skin and subcutaneous tissue, Z01.818 - Encounter for other preprocedural examination Comprehensive Met. Panel Today L98.7 - Excessive and redundant skin and subcutaneous tissue, Z01.818 - Encounter for other preprocedural examination C Reactive Protein Today L98.7 - Excessive and redundant skin and subcutaneous tissue, Z01.818 - Encounter for other preprocedural examination Ferritin Today L98.7 - Excessive and redundant skin and subcutaneous tissue, Z01.818 - Encounter for other preprocedural examination Hemoglobin A1c Today L98.7 - Excessive and redundant skin and subcutaneous tissue, Z01.818 - Encounter for other preprocedural examination IRON PROFILE Today L98.7 - Excessive and redundant skin and subcutaneous tissue, Z01.818 - Encounter for other preprocedural examination Lipid Panel Today L98.7 - Excessive and redundant skin and subcutaneous tissue, Z01.818 - Encounter for other preprocedural examination PTHI Today L98.7 - Excessive and redundant skin and subcutaneous tissue, Z01.818 - Encounter for other preprocedural examination TSH reflex Free T4 Today L98.7 - Excessive and redundant skin and subcutaneous tissue, Z01.818 - Encounter for other preprocedural examination Vitamin A Today L98.7 - Excessive and redundant skin and subcutaneous tissue, Z01.818 - Encounter for other preprocedural examination Vitamin B1 Today L98.7 - Excessive and redundant skin and subcutaneous tissue, Z01.818 - Encounter for other preprocedural examination Vitamin D 25-OH Total Today L98.7 - Excessive and redundant skin and subcutaneous tissue, Z01.818 - Encounter for other preprocedural examination Zinc Today L98.7 - Excessive and redundant skin and subcutaneous tissue, Z01.818 - Encounter for other preprocedural examination Prothrombin Time INR Today L98.7 - Excessive and redundant skin and subcutaneous tissue, Z01.818 - Encounter for other preprocedural examination Partial Thromboplastin Time Today L98.7 - Excessive and redundant skin and subcutaneous tissue, Z01.818 - Encounter for other preprocedural examination Complete Blood Count Auto Diff Today L98.7 - Excessive and redundant skin and subcutaneous tissue, Z01.818 - Encounter for other preprocedural examination Medications: New cephalexin 500 mg PO Q12H 30 caps 1RF docusate sodium (Colace) 100 mg PO DAILY 30 caps 0RF Telehealth Telehealth Location of provider rendering services: practice address Location of patient: address on file Patient Identification confirmed using: Name, : Yes Telehealth method: video Patient verbally consented to treatment: Yes Patient verbally consented to billing insurance company: Yes Patient informed of any privacy concerns related to visit: Yes Minutes spent on Phone/Video with Pt.: 12 Coding Level of Care Code Est Pt Level 4 (86357) Diagnoses Excess skin L98.7 Pre-op evaluation Z01.818 Time Spent (min) 35
== END 2023-06-28 15:00 | disposition home or self-care (01) ==
LOC: HO.HBS 14:57
PROVIDERS: PCP Student in an Organized Health Care Education/Training Program; Visit Provider Physician Assistant Surgical
DX: L98.7 Excessive and redundant skin and subcutaneous tissue (principal); Z01.818 Encounter for other preprocedural examination
CPT/HCPCS: 99214

== ENCOUNTER → 2023-06-28 14:57 | Outpatient (BNVA) | payer OTHER, SELFPAY | PROVIDERS: PCP Student in an Organized Health Care Education/Training Program; Visit Provider Physician Assistant Surgical | DX: Z01.818 Encounter for other preprocedural examination (principal); L98.7 Excessive and redundant skin and subcutaneous tissue | CPT/HCPCS: 99212 ==

== ENCOUNTER 2023-07-01 11:17 | Outpatient (REF) | payer OTHER, SELFPAY ==
[2023-07-01 11:37] LABS: MANUAL DIFF FLAG NO
[2023-07-01 12:11] LABS: Basophils Percent Auto 0.7 % (0-2); Eosinophils Percent Auto 0.4 % (0-4); Hematocrit 40.5 % (37.0-47.0); Hemoglobin 13.9 g/dl (12.0-16.0); Imm Gran Abs Auto 0.02 X10*3/uL (0.00-0.03); Imm Gran Pct Auto 0.4 % (0.0-0.4); Lymphocytes Absolute Auto 1.3 X10*3/uL (1.2-4.9); Lymphocytes Percent Auto 23.5 % (20-40); Mean Corpuscular HGB Conc 34.3 g/dl (31.0-35.0); Mean Corpuscular Hemoglobin 31.5 pg (27.0-33.0); Mean Corpuscular Volume 91.8 fL (80.0-98.0); Mean Platelet Volume 10.8 fL (9.4-12.3); Monocytes Absolute Auto 0.6 X10*3/uL (0.1-1.2); Monocytes Percent Auto 11.1 % (2-11); Neutrophils Absolute Auto 3.5 x10*3/uL (2.0-8.3); Neutrophils Percent Auto 63.9 % (45-73); Platelet Count 210 X10*3/uL (160-400); Red Blood Count 4.41 X10*6/uL (4.20-5.50); White Blood Count 5.4 X10*3/uL (4.8-10.8)
[2023-07-01 12:17] LABS: INTERNATIONAL NORM RATIO 1.1 (0.9-1.1); Prothrombin Time 13.4 SEC (11.1-13.3)
[2023-07-01 12:19] LABS: Partial Thromboplastin Time 37.4 SEC (26.0-36.4)
[2023-07-01 12:22] LABS: Estimated Average Glucose 80 mg/dL; Hemoglobin A1c % 4.4 %
[2023-07-01 12:27] LABS: Alanine Aminotransferase 13 U/L (0-31); Albumin Level 4.4 g/dL (3.5-5.0); Alkaline Phosphatase 71 U/L (39-117); Anion Gap 16 (12-20); Aspartate Amino Transferase 17 U/L (5-31); Bilirubin Total 0.8 mg/dL (0.0-1.0); Blood Urea Nitrogen 13 mg/dL (9-16); C Reactive Protein 1.03 mg/dL (< or = 0.50); Calcium 9.6 mg/dL (8.4-10.2); Carbon Dioxide 22 mmol/L (22-29); Chloride 107 mmol/L (96-108); Cholesterol 158 mg/dL; Estimated Glomerular Filt Rate > 60; Glucose Random 77 mg/dL (60-115); HDL Cholesterol 42 mg/dL; Iron 35 mcg/dL (30-160); LDL Cholesterol Calculated 107 mg/dl; Percent Iron Saturation 14 % (15-50); Sodium 141 mmol/L (135-145); Total Iron Binding Capacity 245 mcg/dL (228-428); Total Protein 7.2 g/dL (6.5-8.0); Triglycerides 47 mg/dL; Unsaturated Iron Binding 210 ug/dL
[2023-07-01 12:42] LABS: Ferritin 119 ng/mL (10-122); TSH reflex Free T4 0.62 uIU/mL (0.32-4.0); Vitamin D 25-OH Total 41.9 ng/mL (>30)
[2023-07-01 13:21] LABS: Vitamin B12 > 2000 pg/mL (200-900)
[2023-07-05 12:42] LABS: Calcium (PTHI) 9.3 mg/dL (8.6-10.2); PTHI 58 pg/mL (16-77)
[2023-07-06 02:04] LABS: Zinc 58 mcg/dL (60-130)
[2023-07-07 14:48] LABS: Vitamin A 40 mcg/dL (38-98)
[2023-07-07 15:39] LABS: Vitamin B1 <6 nmol/L (8-30)
== END 2023-07-01 11:18 | disposition home or self-care (01) ==
LOC: HO.LAB 11:17
PROVIDERS: PCP Student in an Organized Health Care Education/Training Program; Visit Provider Physician Assistant Surgical
DX: Z01.818 Encounter for other preprocedural examination (principal); L98.7 Excessive and redundant skin and subcutaneous tissue
CPT/HCPCS: 36415; 80053; 80061; 82306; 82607; 82728; 83036; 83540; 83970; 84425; 84443; 84590; 84630; 85025; 85610; 85730; 86140

== ENCOUNTER 2023-07-13 08:19 | Day surgery (SDC) | payer OTHER, SELFPAY ==
[2023-06-30 10:47] VITALS: BMI 29.2
[2023-06-30 11:23] VITALS: BMI 29.3
--- NOTE | 2023-07-09 23:18 | MHC.SHP ---
Pre-Procedural Eval Section A Date of Service: 07/09/23 The patient is an INPATIENT: No Section B Chief Complaint: Excessive & redundant skin and subcutaneous tissue Relevant Family History (Specify if Yes): No Relevant Social History: None Present Medications: None Medical History: No relevant PMH History of Previous Operations: No relevant previous surgery Allergies: Allergies Allergy/AdvReac Type Severity Reaction Status Date / Time No Known Allergies Allergy Verified 05/20/23 13:22 Review of Systems Sugical H&P ROS: Negative: Constitution, Cardiovascular, Respiratory, Neurological, Psychiatric, Hem-Onc, Allergic/Immunologic, Gastrointestinal, Genitourinary, Musculoskeletal, Integumentary, Endocrine and Eyes/Ears/Nose/Throat Exam Surgical H&P Exam: Normal: HEENT, Normal: Heart, Normal: Lungs, Normal: Extremities, Normal: Abdomen, Normal: Skin and Normal: Neurological Plan Diagnosis/Plan: Unchanged I have reviewed the history and physical and performed a pertinent physical examination on my patient. No changes have occurred unless specified. Time Spent With Patient Time: Total time managing care of this patient today ____ minutes.
--- NOTE | 2023-07-12 08:28 | P.CONAN_ITS ---
Documented by User: Tiffanie Carr NP 07/12/23 08:30 HPI - Anesthesia Eval Consult details Narrative: 27yo F for Bilateral Brachioplasty PMFSH Active Problems Active Problems: All Active Problems (Updated 06/28/23 @ 14:53 by RYAN Higgins) Pre-op evaluation (Acute) Excess skin (Acute) Overweight (Acute) Obesity (Acute) Oral candidiasis (Acute) Constipation (Acute) S/P laparoscopic sleeve gastrectomy (Acute) Liver fibrosis (Acute) Morbid obesity (Acute) Past Medical History Medical History Adjustment disorder History of epidural anesthesia Morbid obesity Vitamin B12 deficiency Vitamin D deficiency Family History Family History Brother Stomach acid Family history of problems with anesthesia: No Surgical History Surgical History (Updated 07/13/23 @ 09:49 by Orly Trevino MD) History of sleeve gastrectomy Hx of wisdom tooth extraction History of Problems with Anesthesia: No Social History Social History Are you a primary care transitions nurse to a significant other at home: Yes Do you presently have visiting nurse or other home services: No Alcohol intake: current Alcohol intake frequency: does not drink Patient Tobacco Use Status: Never used Tobacco Use of substances other than those prescribed or required for medical reasons: No Have you been hit, kicked, punched, or otherwise hurt by someone within the past year? If so, by whom?: No Are you DNR?: No Advance Directives: No Advance Directives Information Provided: Yes Advance Directives on File: No Recently lost weight without trying: No Eating poorly because of decreased appetite: No Nutrition Risks: No Nutritional Risk Patient : No : No Poor oral hygiene: No service: No Current occupational status: employed Meds Allergies Allergy/AdvReac Type Severity Reaction Status Date / Time No Known Allergies Allergy Verified 05/20/23 13:22 Home Medications Medication Instructions Recorded Confirmed Last Taken Type etonogestrel 68 mg subdermal subdermal 03/12/22 05/20/23 Unknown History implant (Nexplanon) Exam Exam Date and Time: July 12, 2023 0828 Height,Weight and Vital Signs: Height 5 ft 4 in Weight 77.474 kg Pertinent Lab Results Pertinent Lab Results: Laboratory Tests 07/01/23 11:28 Blood Type O Positive Antibody Screen NEGATIVE Laboratory Tests 07/01/23 07/01/23 11:35 11:35 WBC 5.4 Hgb 13.9 Hct 40.5 Plt Count 210 Sodium 141 Potassium 4.0 Chloride 107 Carbon Dioxide 22 BUN 13 Creatinine 0.82 Assessment and Plan Assessment Anesthesia Assessment: Chart Reviewed Final Anesthetic Review Family History of Problems with Anesthesia: No History of Problems with Anesthesia: No Documented by User: Orly Trevino MD 07/13/23 11:13 PMFSH Active Problems Active Problems: All Active Problems (Updated 07/13/23 @ 09:25 by Orly Trevino MD) Pre-op evaluation (Acute) Excess skin (Acute) Overweight (Acute) Oral candidiasis (Acute) Constipation (Acute) S/P laparoscopic sleeve gastrectomy (Acute) Liver fibrosis (Acute) Past Medical History Medical History Adjustment disorder History of epidural anesthesia Morbid obesity Vitamin B12 deficiency Vitamin D deficiency Family History Family History Brother Stomach acid Surgical History Surgical History (Updated 07/13/23 @ 09:49 by Orly Trevino MD) History of sleeve gastrectomy Hx of wisdom tooth extraction Social History Social History Are you a primary care transitions nurse to a significant other at home: Yes Do you presently have visiting nurse or other home services: No Alcohol intake: current Alcohol intake frequency: does not drink Patient Tobacco Use Status: Never used Tobacco Use of substances other than those prescribed or required for medical reasons: No Have you been hit, kicked, punched, or otherwise hurt by someone within the past year? If so, by whom?: No Are you DNR?: No Advance Directives: No Advance Directives Information Provided: Yes Advance Directives on File: No Recently lost weight without trying: No Eating poorly because of decreased appetite: No Nutrition Risks: No Nutritional Risk Patient : No : No Poor oral hygiene: No service: No Current occupational status: employed Meds Allergies Allergy/AdvReac Type Severity Reaction Status Date / Time No Known Allergies Allergy Verified 05/20/23 13:22 Home Medications Medication Instructions Recorded Confirmed Last Taken Type etonogestrel 68 mg subdermal subdermal 03/12/22 05/20/23 Unknown History implant (Nexplanon) Exam Height,Weight and Vital Signs: Height 5 ft 4 in Weight 77.474 kg Vital Signs Temp Pulse Resp BP Pulse Ox O2 Del Method 07/13/23 08:59 97.6 F 80 18 101/66 97 Room Air Pertinent Lab Results Pertinent Lab Results: Laboratory Tests 07/01/23 11:28 Blood Type O Positive Antibody Screen NEGATIVE Laboratory Tests 07/01/23 07/01/23 11:35 11:35 WBC 5.4 Hgb 13.9 Hct 40.5 Plt Count 210 Sodium 141 Potassium 4.0 Chloride 107 Carbon Dioxide 22 BUN 13 Creatinine 0.82 Lab Results 07/01/23 07/13/23 Range/Units 11:28 08:30 Urine Test NEGATIVE (NEGATIVE) Blood Type O Positive Antibody Screen NEGATIVE Airway Mallampati Class: II TM Dist: >3cm Neck ROM: Full Loose/Missing/Broken Teeth: No (Denies broken, loose, missing teeth) Heart: RRR Lungs: CTAB Assessment and Plan Assessment Anesthesia Assessment: Anesthesia Plan Discussed Final Anesthetic Review NPO: Yes ASA Class: III Final Preanesthetic Review: No Changes in Pt Med Stat, Meds/Allgs Chart Reviewed, Consent Obtained/Reviewed and Anes Risks/Benef Reviewed Patient Risk: Intermediate Procedure Risk: Intermediate Assessment/Block/Sedation in SS: Assess/Block/Sedation-SS Anesthetic Plan Anesthetic Plan: GA Disposition: Standard PACU
[2023-07-13] VITALS (17 sets, daily range): BP systolic 96–119; BP diastolic 50–76; PULSE 80–114; RESP 14–20; TEMP 36.4–36.7; O2SAT 97–100; BMI 29.2
[2023-07-13] MEDS: Lactated Ringers 1,000 ML 100 ML IVCONT (08:46)
[2023-07-13 08:51] LABS: UPreg QC Valid YES; Urine Pregnancy NEGATIVE (NEGATIVE)
--- NOTE | 2023-07-13 10:09 | P.BOP_ITS ---
Brief Operative Note Date of Service: 07/13/23 Pre-op diagnosis: Excess skin and skin laxity Post-op diagnosis: same Procedure: PROCEDURE: Bilateral subcutaneous fat flaps, bilateral brachioplasty INDICATION: This a 27 year old female who underwent laparoscopic sleeve gastrectomy on 05/19/2022. She had an excellent result achieving a BMI of 27.2 kg/m2 with a total weight loss of 118.3lbs, or 40.5% of her TBWL. As a result, she has developed excess skin, skinlaxity and skin irritation and intetrigo in both upper arms. On exam she has skin laxity due to massive weight loss and the upper arms hang 4 cm below the level of the triceps. Bilateral brachioplasty was recommended. The patient agreed with this. Risks and complications were discussed with the patient including bleeding, infection, flap necrosis, asymmetry, dehiscence, seroma, VTE. The patient understood the risks and was in agreement to proceed with surgery. PROCEDURE: The incisions were appropriately marked at the preop area with the patient standing and laying down. After induction of general anesthesia, pneumatic compression devices were placed. The patient was prepped and draped in the usual sterile manner and the incisions were marked again and confirmed. In similar fashion both upper arms were also marked when the patient was standing. The upper arms were performed first. The skin was infiltrated with lidocaine and epinephrine. Skin was excised with the #15 blade. Cautery was used to separate the skin from subcutaneous tissues. Careful attention was paid to make sure that the plain of excision was superficial as close to the skin as possible. The righ t upper arm skin was 25 cm x 8 cm and the left 23 cm x 6 cm. Skin was closed in two layers using interrupted 3.0 Monocryl sutures for the dermis and 4.0 subcuticular Monocryl suture for the skin. The was awaken and was transferred to the recover room in a stable condition. I was present and performed the entire procedure. Ms. Cormier was the accounts receivable assistant. Marcos Marie MD, PhD, FACS Surgeon: Luis Marie MD Surgeon: Luis Marie MD Anesthesia: GETA and local Was an Supervisor Accounts Receivable used for this Procedure?: No Supervisor Accounts Receivable: Shayla Cormier Estimated blood loss (mL): 10 IV fluids (mL): 2,000 Urine output (mL): 0 (No Cameron to gravity) Pathology: other (Bilateral upper arm skin) Condition: stable Disposition: PACU
--- NOTE | 2023-07-14 10:31 | HO.POSTANES ---
Post Anesthesia Evaluation Post Anesthesia Evaluation Date of Service: 07/13/23 Anesthesia: General Endotracheal-GETA Mental Status: Awake Pain Control: Satisfactory Nausea/Vomiting: None Hydration: Adequate Anesthesia-Related Issues: No Anes. Related Issues
== END 2023-07-13 18:22 | disposition home or self-care (01) ==
PROVIDERS: Nurse Practitioner; PCP Student in an Organized Health Care Education/Training Program; Visit Provider Surgery
PROC: (CPT 15836; principal; 2023-07-13 10:10)
DX: K95.89 Other complications of other bariatric procedure (principal); L98.7 Excessive and redundant skin and subcutaneous tissue; L30.4 Erythema intertrigo; R21 Rash and other nonspecific skin eruption; Z90.3 Acquired absence of stomach [part of]; Y84.8 Other medical procedures as the cause of abnormal reaction of the patient, or of later complication, without mention of misadventure at the time of the procedure; Y92.9 Unspecified place or not applicable; E66.9 Obesity, unspecified; Z68.27 Body mass index [BMI] 27.0-27.9, adult; E55.9 Vitamin D deficiency, unspecified; E53.8 Deficiency of other specified B group vitamins; Z79.899 Other long term (current) drug therapy
CPT/HCPCS: 15836; 81025; 86850; 86900; 86901; 88304; C9088; J0131; J0690; J1100; J1170; J2250; J2405; J2550; J3010; J3370

== ENCOUNTER → 2023-07-13 08:19 | Outpatient (BNV) | payer OTHER, SELFPAY | PROVIDERS: PCP Student in an Organized Health Care Education/Training Program; Visit Provider Surgery | DX: L98.7 Excessive and redundant skin and subcutaneous tissue (principal) | CPT/HCPCS: 15836 ==

== ENCOUNTER 2023-07-20 11:04 | Outpatient (AMB) | payer OTHER, SELFPAY ==
--- NOTE | 2023-07-20 11:11 | MHC.OFFVISWM ---
Intake VS Expanded 07/20/23 11:21 BP 127/81 Blood Pressure Location Rt brachial Blood Pressure Position Sitting Pulse 78 Pulse Source Pulse Oximeter Temp 97.8 F Temperature Source Temporal Artery Scan Intake Visit Reasons: (OV) 7 Days s/p Brachioplasty 07/13/23 Allergies No Known Allergies Allergy (Verified 07/20/23 11:22) HPI HPI Comments History of Present Illness Details 27 yo female 7 days post op bilateral brachioplasty. Doing very well. No pain or drainage following meal plan per Dr Hudson and continues abx REPLACED BY [facility] Medical History Adjustment disorder History of epidural anesthesia Morbid obesity Vitamin B12 deficiency Vitamin D deficiency Surgical History History of sleeve gastrectomy Hx of wisdom tooth extraction Family History Brother Stomach acid Social History Are you a primary care transition coordinator to a significant other at home: Yes Do you presently have visiting nurse or other home services: No Alcohol intake: current Alcohol intake frequency: does not drink Patient Tobacco Use Status: Never used Tobacco service: No Current occupational status: employed Physical Exam Vital Signs: Last Vital Signs Temp 97.8 F 07/20/23 11:21 Pulse 78 07/20/23 11:21 BP 127/81 07/20/23 11:21 Skin Other: bilat incisions c/d/i. healing nicely, no dehisc or infection Assessment & Plan Assessment & Plan (1) S/P brachioplasty: Code(s): Z98.890 - Other specified postprocedural states Plan: Healing very well. Continue abx, dressing, no activity. RTC 1 week Coding Level of Care Code Global (84565) Diagnoses S/P brachioplasty Z98.890
[2023-07-20 11:21] VITALS: BP 127/81; PULSE 78; TEMP 36.6
== END 2023-07-20 11:54 | disposition home or self-care (01) ==
PROVIDERS: PCP Student in an Organized Health Care Education/Training Program; Visit Provider Physician Assistant Surgical
DX: Z98.890 Other specified postprocedural states (principal)
CPT/HCPCS: 99024

== ENCOUNTER → 2023-07-20 11:04 | Outpatient (BNVA) | payer OTHER, SELFPAY | PROVIDERS: PCP Student in an Organized Health Care Education/Training Program; Visit Provider Physician Assistant Surgical ==

== ENCOUNTER 2023-07-27 12:56 | Outpatient (AMB) | payer OTHER, SELFPAY ==
--- NOTE | 2023-07-27 12:59 | MHC.OFFVISWM ---
Intake VS Expanded 07/27/23 13:03 BP 115/66 Blood Pressure Location Rt radial Blood Pressure Position Sitting Pulse 86 Pulse Source Pulse Oximeter Temp 98.2 F Temperature Source Temporal Artery Scan Pulse Oximetry 99 Oxygen Delivery Method Room Air Intake Visit Reasons: (OV) s/p Brachioplasty 07/13/23 Allergies No Known Allergies Allergy (Verified 07/27/23 13:04) HPI HPI Comments History of Present Illness Details 27 yo female POD 14 s/p bilateral brachioplasty No complaints of pain, drainage continues abx continues 2 shakes, bar, meal PFSH Medical History Adjustment disorder History of epidural anesthesia Morbid obesity Vitamin B12 deficiency Vitamin D deficiency Surgical History History of sleeve gastrectomy Hx of wisdom tooth extraction Family History Brother Stomach acid Social History Are you a primary rehab care assistant to a significant other at home: Yes Do you presently have visiting nurse or other home services: No Alcohol intake: current Alcohol intake frequency: does not drink Patient Tobacco Use Status: Never used Tobacco service: No Current occupational status: employed Physical Exam Vital Signs: Last Vital Signs Temp 98.2 F 07/27/23 13:03 Pulse 86 07/27/23 13:03 BP 115/66 07/27/23 13:03 Pulse Ox 99 07/27/23 13:03 Oxygen Delivery Method Room Air 07/27/23 13:03 Skin Other: incisions c/d/i bilaterally Assessment & Plan Assessment & Plan (1) S/P brachioplasty: Code(s): Z98.890 - Other specified postprocedural states Plan: POD 14, doing very well, symmetric, no infection or dehiscence May shower but no bath no work yet, no driving yet rtc 1 week Coding Level of Care Code Global (69738) Diagnoses S/P brachioplasty Z98.890
[2023-07-27 13:03] VITALS: BP 115/66; PULSE 86; TEMP 36.8; O2SAT 99
== END 2023-07-27 13:15 | disposition home or self-care (01) ==
PROVIDERS: PCP Student in an Organized Health Care Education/Training Program; Visit Provider Physician Assistant Surgical
DX: Z98.890 Other specified postprocedural states (principal)
CPT/HCPCS: 99024

== ENCOUNTER → 2023-07-27 12:56 | Outpatient (BNVA) | payer OTHER, SELFPAY | PROVIDERS: PCP Student in an Organized Health Care Education/Training Program; Visit Provider Physician Assistant Surgical ==

== ENCOUNTER 2023-08-03 11:45 | Outpatient (AMB) | payer OTHER, SELFPAY ==
--- NOTE | 2023-08-03 11:51 | MHC.OFFVISWM ---
Intake VS Expanded 08/03/23 11:58 Height 5 ft 4 in Weight 171 lb BMI 29.3 BP 132/74 Blood Pressure Location Rt brachial Blood Pressure Position Sitting Pulse 86 Pulse Source Pulse Oximeter Temp 97.7 F Temperature Source Temporal Artery Scan Pulse Oximetry 96 Oxygen Delivery Method Room Air Body Fat 45.6 Body Fat Percentage 26.7 Free Fat Mass 125.2 Muscle Mass 118.8 Visceral Mass 3.0 Water Mass 90.0 BMR 1,702 Intake Visit Reasons: (OV) s/p Brachioplasty 07/13/23 Register In Chancery Required: No Allergies No Known Allergies Allergy (Verified 08/03/23 11:55) Medication List - Last Reconciled 08/03/23 by RYAN Higgins acetaminophen ER (Tylenol 8 Hour) 650 mg PO Q6-8H PRN thiamine HCl (vitamin B1) 100 mg PO DAILY 90 days HPI HPI Comments History of Present Illness Details 27 yo female POD 21 s/p bilateral brachioplasty No complaints of pain, drainage continues abx continues 2 shakes, bar, meal ? PFSH Medical History Adjustment disorder History of epidural anesthesia Morbid obesity Vitamin B12 deficiency Vitamin D deficiency Surgical History History of sleeve gastrectomy Hx of wisdom tooth extraction Family History Brother Stomach acid Social History Are you a primary career portals teacher to a significant other at home: Yes Do you presently have visiting nurse or other home services: No Alcohol intake: current Alcohol intake frequency: does not drink Patient Tobacco Use Status: Never used Tobacco service: No Current occupational status: employed Physical Exam Vital Signs: Last Vital Signs Temp 97.7 F 08/03/23 11:58 Pulse 86 08/03/23 11:58 BP 132/74 08/03/23 11:58 Pulse Ox 96 08/03/23 11:58 Oxygen Delivery Method Room Air 08/03/23 11:58 BMI result Body Mass Index 29.3 Skin Other: bilat incisions healing well, no s/sx infection or dehiscence Assessment & Plan Assessment & Plan (1) S/P brachioplasty: Code(s): Z98.890 - Other specified postprocedural states Plan: continue meal plans 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
[2023-08-03 11:58] VITALS: BP 132/74; PULSE 86; TEMP 36.5; O2SAT 96; BMI 29.3
== END 2023-08-03 13:02 | disposition home or self-care (01) ==
PROVIDERS: PCP Student in an Organized Health Care Education/Training Program; Visit Provider Physician Assistant Surgical
DX: L98.7 Excessive and redundant skin and subcutaneous tissue (principal)
CPT/HCPCS: 99024

== ENCOUNTER → 2023-08-03 11:45 | Outpatient (BNVA) | payer OTHER, SELFPAY | PROVIDERS: PCP Student in an Organized Health Care Education/Training Program; Visit Provider Physician Assistant Surgical ==

== ENCOUNTER 2023-08-10 12:27 | Outpatient (AMB) | payer OTHER, SELFPAY ==
--- NOTE | 2023-08-10 12:35 | A.OFFVIS_ITS ---
Intake VS Expanded 08/10/23 12:38 Height 5 ft 4 in BP 122/76 Blood Pressure Location Lt radial Blood Pressure Position Sitting Pulse 92 Pulse Source Pulse Oximeter Temp 97.8 F Temperature Source Temporal Artery Scan Pulse Oximetry 95 Oxygen Delivery Method Room Air Intake Visit Reasons: (OV) s/p Brachioplasty 07/13/23 Allergies No Known Allergies Allergy (Verified 08/10/23 12:39) HPI HPI Comments History of Present Illness Details 1 month post bilateral brachioplasty. D oing well overall. Returned to work in [employer]. Continues to hold off on [employer] work No sig complaints PFSH Medical History History of epidural anesthesia Adjustment disorder Vitamin B12 deficiency Vitamin D deficiency Morbid obesity Surgical History History of sleeve gastrectomy Hx of wisdom tooth extraction Family History Brother Stomach acid Social History Are you a primary out of school hours care worker to a significant other at home: Yes Do you presently have visiting nurse or other home services: No Alcohol intake: current Alcohol intake frequency: does not drink Patient Tobacco Use Status: Never used Tobacco service: No Current occupational status: employed Physical Exam Vital Signs: Last Vital Signs Temp 97.8 F 08/10/23 12:38 Pulse 92 08/10/23 12:38 BP 122/76 08/10/23 12:38 Pulse Ox 95 08/10/23 12:38 Oxygen Delivery Method Room Air 08/10/23 12:38 Skin Other: c/d/i Assessment & Plan Assessment & Plan (1) S/P brachioplasty: Code(s): Z98.890 - Other specified postprocedural states Plan: continue plans. 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
[2023-08-10 12:38] VITALS: BP 122/76; PULSE 92; TEMP 36.6; O2SAT 95
== END 2023-08-10 12:56 | disposition home or self-care (01) ==
PROVIDERS: PCP Student in an Organized Health Care Education/Training Program; Visit Provider Physician Assistant Surgical
DX: Z98.890 Other specified postprocedural states (principal)
CPT/HCPCS: 99024

== ENCOUNTER → 2023-08-10 12:27 | Outpatient (BNVA) | payer OTHER, SELFPAY | PROVIDERS: PCP Student in an Organized Health Care Education/Training Program; Visit Provider Physician Assistant Surgical ==

== ENCOUNTER 2023-08-16 12:03 | Outpatient (AMB) | payer OTHER, SELFPAY ==
--- NOTE | 2023-08-16 12:05 | MHC.OFFVISWM ---
Intake VS Expanded 08/16/23 12:10 Height 5 ft 4 in BP 132/75 Blood Pressure Location Rt radial Blood Pressure Position Sitting Pulse 78 Pulse Source Pulse Oximeter Temp 98.0 F Temperature Source Temporal Artery Scan Pulse Oximetry 97 Oxygen Delivery Method Room Air Intake Visit Reasons: (OV) s/p Brachioplasty 07/13/23 Allergies No Known Allergies Allergy (Verified 08/16/23 12:11) HPI HPI Comments History of Present Illness Details 27 yo female s/p brachioplasty on 07/13/23. Reports one small area distal third along the right incision where a suture came loose and she applied a small bandaid. This was this morning and there was scant blood. No other issues [facility] Medical History History of epidural anesthesia Adjustment disorder Vitamin B12 deficiency Vitamin D deficiency Morbid obesity Surgical History History of sleeve gastrectomy Hx of wisdom tooth extraction Family History Brother Stomach acid Social History Are you a primary long term care pharmacist to a significant other at home: Yes Do you presently have visiting nurse or other home services: No Alcohol intake: current Alcohol intake frequency: does not drink Patient Tobacco Use Status: Never used Tobacco service: No Current occupational status: employed Physical Exam Vital Signs: Last Vital Signs Temp 98.0 F 08/16/23 12:10 Pulse 78 08/16/23 12:10 BP 132/75 08/16/23 12:10 Pulse Ox 97 08/16/23 12:10 Oxygen Delivery Method Room Air 08/16/23 12:10 Skin Other: re-approximated area distal third of right arm incision where a suture had spit. 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 May resume cardio in 2 weeks, no weight lifting rtc 2 weeks Coding Level of Care Code Global (56616) Diagnoses S/P brachioplasty Z98.890
[2023-08-16 12:10] VITALS: BP 132/75; PULSE 78; TEMP 36.7; O2SAT 97
== END 2023-08-16 12:21 | disposition home or self-care (01) ==
PROVIDERS: PCP Student in an Organized Health Care Education/Training Program; Visit Provider Physician Assistant Surgical
DX: L98.7 Excessive and redundant skin and subcutaneous tissue (principal)
CPT/HCPCS: 99024

== ENCOUNTER → 2023-08-16 12:03 | Outpatient (BNVA) | payer OTHER, SELFPAY | PROVIDERS: PCP Student in an Organized Health Care Education/Training Program; Visit Provider Physician Assistant Surgical ==

== ENCOUNTER 2023-09-01 11:58 | Outpatient (AMB) | payer SELFPAY ==
[2023-09-01 12:02] VITALS: BP 107/59; PULSE 69; TEMP 36.7
--- NOTE | 2023-09-01 12:02 | A.OFFVIS_ITS ---
Intake VS Expanded 09/01/23 12:02 BP 107/59 L Blood Pressure Location Rt brachial Blood Pressure Position Sitting Pulse 69 Pulse Source Pulse Oximeter Temp 98.1 F Temperature Source Temporal Artery Scan Intake Visit Reasons: (OV) s/p Brachioplasty 07/13/23 Allergies No Known Allergies Allergy (Verified 09/01/23 12:02) HPI HPI Comments History of Present Illness Details The patient is a 27-year-old female who presents to the office today in follow-up for her brachioplasty performed 07/13/2023. She denies any significant complaints and is doing very well. [facility] Medical History History of epidural anesthesia Adjustment disorder Vitamin B12 deficiency Vitamin D deficiency Morbid obesity Surgical History History of sleeve gastrectomy Hx of wisdom tooth extraction Family History Brother Stomach acid Social History Are you a primary certified social workers in health care to a significant other at home: Yes Do you presently have visiting nurse or other home services: No Alcohol intake: current Alcohol intake frequency: does not drink Patient Tobacco Use Status: Never used Tobacco service: No Current occupational status: employed Physical Exam Vital Signs: Last Vital Signs Temp 98.1 F 09/01/23 12:02 Pulse 69 09/01/23 12:02 BP 107/59 L 09/01/23 12:02 Skin Other: Incisions, clean, dry, intact. Healing very well. Assessment & Plan Assessment & Plan (1) S/P brachioplasty: Code(s): Z98.890 - Other specified postprocedural states Plan: Doing very well and satisfied with her outcome. Continue to avoid vigorous activity for another 2 weeks Coding Level of Care Code Global (77879) Diagnoses S/P brachioplasty Z98.890
== END 2023-09-01 12:42 | disposition home or self-care (01) ==
PROVIDERS: PCP Student in an Organized Health Care Education/Training Program; Visit Provider Physician Assistant Surgical
DX: L98.7 Excessive and redundant skin and subcutaneous tissue (principal); Z48.89 Encounter for other specified surgical aftercare
CPT/HCPCS: 99024

== ENCOUNTER → 2023-09-01 11:58 | Outpatient (BNVA) | payer OTHER, SELFPAY | PROVIDERS: PCP Student in an Organized Health Care Education/Training Program; Visit Provider Physician Assistant Surgical ==

== ENCOUNTER 2023-09-22 09:25 | Outpatient (AMB) | payer OTHER, SELFPAY ==
--- NOTE | 2023-09-22 09:29 | MHC.OFFVISWM ---
Intake VS Expanded 09/22/23 09:38 BP 120/77 Blood Pressure Location Rt brachial Blood Pressure Position Sitting Pulse 77 Pulse Source Pulse Oximeter Temp 98.3 F Temperature Source Temporal Artery Scan Pulse Oximetry 97 Oxygen Delivery Method Room Air Height 5 ft 4 in Weight 172 lb 9.6 oz BMI 29.6 Body Fat % 28.3 Body Fat Mass 48.8 Fat Free Mass 123.6 Visceral Fat Rating 4.0 Body Water % 51.5 Body Water Mass 88.8 Muscle Mass/Score 117.6 Basal Metabolic Rate/Score 1,688 Intake Visit Reasons: (OV) s/p Brachioplasty 07/13/23 Allergies No Known Allergies Allergy (Verified 09/22/23 09:33) HPI HPI Comments History of Present Illness Details The patient is a pleasant 27-year-old female who returns to the office today in follow-up. She is approximately 2 and half months post bilateral brachioplasty performed on 07/13/2023. Overall, she is satisfied with the results of her procedure. She continues the meal plan as outlined by Dr. Marie including to celebrate for 1 shakes with 2 scoops each in almond milk, 1 zone perfect bar, 1 meal with 10 forks of protein in 10 forks of vegetables. COUNTS INCLUDE 234 BEDS AT THE [facility] Medical History History of epidural anesthesia Adjustment disorder Vitamin B12 deficiency Vitamin D deficiency Morbid obesity Surgical History (Updated 09/22/23 @ 09:33 by Destinee Colbert CMA) S/P laparoscopic sleeve gastrectomy History of sleeve gastrectomy Hx of wisdom tooth extraction Family History Brother Stomach acid Social History Are you a primary client care specialist to a significant other at home: Yes Do you presently have visiting nurse or other home services: No Alcohol intake: current Alcohol intake frequency: does not drink Patient Tobacco Use Status: Never used Tobacco service: No Current occupational status: employed Physical Exam Skin Other: Incisions healed well Assessment & Plan Assessment & Plan (1) S/P brachioplasty: Code(s): Z98.890 - Other specified postprocedural states Plan: Continue current treatment plans. Return to clinic in 1 month. Coding Level of Care Code Global (78220) Diagnoses S/P brachioplasty Z98.890
[2023-09-22 09:38] VITALS: BP 120/77; PULSE 77; TEMP 36.8; O2SAT 97; BMI 29.6
== END 2023-09-22 10:36 | disposition home or self-care (01) ==
PROVIDERS: PCP Student in an Organized Health Care Education/Training Program; Visit Provider Physician Assistant Surgical
DX: L98.7 Excessive and redundant skin and subcutaneous tissue (principal)
CPT/HCPCS: 99024

== ENCOUNTER → 2023-09-22 09:25 | Outpatient (BNVA) | payer OTHER, SELFPAY | PROVIDERS: PCP Student in an Organized Health Care Education/Training Program; Visit Provider Physician Assistant Surgical ==

== ENCOUNTER 2023-10-18 12:21 | Outpatient (AMB) | payer OTHER, SELFPAY ==
--- NOTE | 2023-10-18 12:25 | A.OFFVIS_ITS ---
Intake VS Expanded 10/18/23 12:31 BP 115/59 L Blood Pressure Location Rt brachial Blood Pressure Position Sitting Pulse 87 Pulse Source Pulse Oximeter Temp 98.1 F Temperature Source Tympanic Pulse Oximetry 98 Oxygen Delivery Method Room Air Weight 184 lb 11.958 oz Intake Visit Reasons: (OV) s/p Brachioplasty 07/13/23 Allergies No Known Allergies Allergy (Verified 10/18/23 12:32) HPI HPI Comments History of Present Illness Details 27-year-old female returns the office to day in follow-up. She is approximately 3 months status post bilateral brachioplasty performed on 07/13/2023. She has returned to work. She is satisfied with the overall results of her procedure. She continues to exercise utilizing treadmill and elliptical machine, 3 days a week, limited by her increased work schedule. She is burning approximately 400- 600 calories each session. COUNTS INCLUDE 234 BEDS AT THE [facility] Medical History History of epidural anesthesia Adjustment disorder Vitamin B12 deficiency Vitamin D deficiency Morbid obesity Surgical History (Updated 09/22/23 @ 09:33 by Destinee Colbert CMA) S/P laparoscopic sleeve gastrectomy History of sleeve gastrectomy Hx of wisdom tooth extraction Family History Brother Stomach acid Social History Are you a primary lawn care specialist to a significant other at home: Yes Do you presently have visiting nurse or other home services: No Alcohol intake: current Alcohol intake frequency: does not drink Patient Tobacco Use Status: Never used Tobacco service: No Current occupational status: employed Physical Exam Skin Other: Incisions well healed with some hypertrophic scarring. Assessment & Plan Assessment & Plan (1) S/P brachioplasty: Code(s): Z98.890 - Other specified postprocedural states Plan: satisfied with results. May exercie without restriction continue meal plan as outlined by Dr Hudson (2) S/P laparoscopic sleeve gastrectomy: Code(s): Z98.84 - Bariatric surgery status Plan: 05/19/22, rtc for 18 month post op and labs Coding Level of Care Code Est Pt Level 3 (41200) Diagnoses S/P brachioplasty Z98.890 S/P laparoscopic sleeve gastrectomy Z98.84
[2023-10-18 12:31] VITALS: BP 115/59; PULSE 87; TEMP 36.7; O2SAT 98
== END 2023-10-18 12:41 | disposition home or self-care (01) ==
PROVIDERS: PCP Student in an Organized Health Care Education/Training Program; Visit Provider Physician Assistant Surgical
DX: L98.7 Excessive and redundant skin and subcutaneous tissue (principal); Z90.3 Acquired absence of stomach [part of]; Z98.84 Bariatric surgery status
CPT/HCPCS: 99213

== ENCOUNTER → 2023-10-18 12:21 | Outpatient (BNVA) | payer OTHER, SELFPAY | PROVIDERS: PCP Student in an Organized Health Care Education/Training Program; Visit Provider Physician Assistant Surgical | DX: Z98.890 Other specified postprocedural states (principal); Z98.84 Bariatric surgery status | CPT/HCPCS: 99212 ==

== ENCOUNTER 2024-01-07 10:58 | Outpatient (AMB) | payer OTHER, SELFPAY ==
--- NOTE | 2024-01-07 10:59 | A.OFFVIS_ITS ---
Intake VS Expanded 01/07/24 11:07 BP 111/60 Blood Pressure Location Rt brachial Blood Pressure Position Sitting Pulse 84 Pulse Source Pulse Oximeter Temp 97.1 F Temperature Source Tympanic Pulse Oximetry 95 Oxygen Delivery Method Room Air Height 5 ft 4 in Weight 196 lb 9.6 oz BMI 33.7 Intake Visit Reasons: (OV) s/p Brachioplasty 07/13/23 Allergies No Known Allergies Allergy (Verified 10/18/23 12:32) HPI HPI Comments History of Present Illness Details Very pleasant 28-year-old female returns to the office today in follow- up. She is status post brachioplasty performed on 07/13/2023 and sleeve gastrectomy with hiatal hernia repair on 05/19/2022. She reports overall doing well however she found out that she is . She found out at approximately 3 and half months and she is now 5 months to the day. She has been seen by OBGYN and multiple lab tests have been ordered although this is outside of our system. She reports that she is having an intolerance to celebrate shakes and and has just been eating more protein. Her only complaint today is of tenderness to the right arm scar. [facility] Medical History History of epidural anesthesia Adjustment disorder Vitamin B12 deficiency Vitamin D deficiency Morbid obesity Surgical History S/P laparoscopic sleeve gastrectomy History of sleeve gastrectomy Hx of wisdom tooth extraction Family History Brother Stomach acid Social History Are you a primary health care specialist to a significant other at home: Yes Do you presently have visiting nurse or other home services: No Alcohol intake: current Alcohol intake frequency: does not drink Patient Tobacco Use Status: Never used Tobacco service: No Current occupational status: employed Physical Exam Vital Signs: Last Vital Signs Temp 97.1 F 01/07/24 11:07 Pulse 84 01/07/24 11:07 BP 111/60 01/07/24 11:07 Pulse Ox 95 01/07/24 11:07 Oxygen Delivery Method Room Air 01/07/24 11:07 BMI result Body Mass Index 33.7 Skin Other: Hypertrophic scarring, right greater than left arm Assessment & Plan Assessment & Plan (1) S/P laparoscopic sleeve gastrectomy: Code(s): Z98.84 - Bariatric surgery status Plan: Status post sleeve gastrectomy with hiatal hernia repair, 05/19/2022 as well as brachioplasty on 07/13/2023. She is now 5 months , having found out approximately 6 weeks ago. She is under the care of OBGYN however will refer to Angela for any further vitamin supplementation as well as meal planning. Regarding the hypertrophic scarring, she may certainly apply vitamin E oil or cocoa butter or med derma cream, gently massaging the scar ridge. Coding Level of Care Code Est Pt Level 3 (21794) Diagnoses S/P laparoscopic sleeve gastrectomy Z98.84
[2024-01-07 11:07] VITALS: BP 111/60; PULSE 84; TEMP 36.2; O2SAT 95; BMI 33.7
== END 2024-01-07 11:30 | disposition home or self-care (01) ==
PROVIDERS: PCP Student in an Organized Health Care Education/Training Program; Visit Provider Physician Assistant Surgical
DX: L98.7 Excessive and redundant skin and subcutaneous tissue (principal); Z90.3 Acquired absence of stomach [part of]; Z68.33 Body mass index [BMI] 33.0-33.9, adult; Z98.84 Bariatric surgery status
CPT/HCPCS: 99213

== ENCOUNTER → 2024-01-07 10:58 | Outpatient (BNVA) | payer OTHER, SELFPAY | PROVIDERS: PCP Student in an Organized Health Care Education/Training Program; Visit Provider Physician Assistant Surgical | DX: Z98.84 Bariatric surgery status (principal) | CPT/HCPCS: 99212 ==